=== PATIENT | male | born 1930 | race Caucasian/White ===

== ENCOUNTER 2018-10-08 12:43 | Outpatient (CLI) | payer MEDICARE, BC ==
--- NOTE | 2018-10-08 15:30 | ULT ---
ULTRASOUND DOPPLER DUPLEX CAROTID: Date: 10/08/18 HISTORY: 88-year-old male with right carotid bruit. TECHNIQUE: Lizama scale, color flow, and spectral analysis of major arteries of neck. FINDINGS: Mild intimal thickening in bilateral common carotid arteries. Mild, noncalcified plaque at proximal bilateral internal carotid arteries at the carotid bulbs. Peak systolic and end-diastolic velocities in cm/s: Right internal carotid: 75 and 20 Left internal carotid: 135 and 15 ICA/CCA Ratios: Right: 0.8 Left: 1.3 Vertebral artery flow: Antegrade bilaterally. IMPRESSION: 1. No hemodynamically significant stenosis in the proximal right internal carotid artery. 2. Mildly elevated peak systolic velocity in the left internal carotid, which could indicate mild or moderate stenosis (from less than 50% up to 69%). POS: CET
== END 2018-10-08 12:44 | disposition home or self-care (01) ==
LOC: BICULT 12:43
PROVIDERS: ATTEND Specialist
DX: R09.89 Other specified symptoms and signs involving the circulatory and respiratory systems (principal); I65.22 Occlusion and stenosis of left carotid artery; I10 Essential (primary) hypertension; E55.9 Vitamin D deficiency, unspecified; E78.49 Other hyperlipidemia
CPT/HCPCS: 36415; 80053; 80061; 81003; 82306; 84550; 85025; 93880